=== PATIENT | female | born 1995 | race Caucasian/White ===

== ENCOUNTER → 2017-03-27 | Outpatient (CLI) | payer OTHER ==
[~2017-03-27] MED LIST: IUD'IUD
--- NOTE | 2017-03-27 18:06 | DIAGNOSTIC IMAGING REPORT ---
RIGHT KNEE 3 VIEWS HISTORY: M25.561 Right knee pain Right COMPARISON: None. FINDINGS: There is no fracture or dislocation. Soft tissues are unremarkable. No radiopaque foreign bodies. No knee effusion. IMPRESSION: Normal right knee. Electronically signed by: Jeronimo Bravo M.D. 03/27/2017 6:05 PM Dictated Date/Time: 03/27/2017 6:04 PM
== END | disposition home or self-care (01) ==
LOC: C.RAD 17:28
PROVIDERS: ATTEND Nurse Practitioner
DX: M25.561 Pain in right knee (principal)

== ENCOUNTER 2025-06-08 05:29 | Inpatient (IN) ==
--- NOTE | 2025-06-03 08:38 | Anesthesiology Consultation ---
Date of Service June 03, 2025 Assessment & Plan (1) Encounter for pre-operative examination: - Per railways assistant on 06/03/25: No known infectious disease contacts, current infectious disease symptoms in past 10 days or COVID positive test result in the past 30 days. Chart Review Chart Review: data entry representative initiated History Surgery Operation Date: 06/08/25 07:30 Proposed Procedures p Section in LD - Chey Duarte MD s Bilateral Tubal Ligation Labor & Deliv - Chey Duarte MD Height/Weight Height: 5 ft 3 in Weight: 72.575 kg Allergies Allergy/AdvReac Type Severity Reaction Status Date / Time No Known Allergies Allergy Verified 06/03/25 07:29 Medications Home Medications Medication Instructions Recorded Confirmed Last Taken 21-iron fu-folic acid 1 tab PO DAILY 11/10/24 06/03/25 Unknown [ Complete] breast pump #1 ea 02/25/25 05/27/25 Unknown albuterol sulfate 90 mcg/actuation 90 mcg inhalation QID PRN 06/03/25 06/03/25 Unknown aerosol inhaler shortness of breath or wheezing beclomethasone dipropionate 40 2 inh inhalation BID PRN Illness 06/03/25 06/03/25 Unknown mcg/actuation HFA breath activated aerosol (Qvar RediHaler) Past Medical History Medical History (Updated 06/03/25 @ 08:36 by Radha Larsen PA-C) Anxiety Asthma PRN Inhaler Biceps tendinitis on right no surgery - chiropractor care Chronic pelvic pain in female from endometriosis Complex ovarian cyst "resolved on their own" Depression H/O Dysmenorrhea hx Endometriosis determined by laparoscopy Foreign body ingestion hx - "tongue piercing ball came off" GERD (gastroesophageal reflux disease) History of anemia no blood transfusion/iron infusion Insomnia Lateral epicondylitis, right elbow no surgery - chiropractor care Medial epicondylitis, right elbow no surgery - chiropractor care Menometrorrhagia hx Migraine Numbness and tingling of right arm "Sometimes" no surgery - chiropractor care Ovarian cyst 2013, "resolved on own" Varicella hx Past Family History Family History Grandmother Diabetes Family/Other Alcohol abuse Bladder calculus Depression Endometriosis Hypertension Lung cancer Ovarian cyst Pure hypercholesterolemia Skin cancer Denies family history of Ovarian cancer Breast cancer Colorectal cancer Past Surgical History Surgical History H/O laparoscopy diagnostic History of section x1 History of esophagogastroduodenoscopy (EGD) (2022) History of open reduction and internal fixation (ORIF) procedure Right Ankle - Hardware present History of tonsillectomy History of wisdom tooth extraction Social History Smoking Status: Never smoker tobacco type: cigarettes Do You Dip or Chew Tobacco: No Hx Alcohol Use: No Alcohol type: beer and hard liquor alcohol intake frequency: holidays/special occasions only Hx Substance Use: No substance use type: does not use
[2025-06-08] MEDS: LACTATED RINGER'S 1,000 ML IV SCH ×2 (06:01→06:57)
[2025-06-08] MEDS: ACETAMINOPHEN 500 MG TAB PO SCH (06:05)
[2025-06-08 06:06] LABS: Hematocrit (blood only) 28.8 % (37.0-47.0); Hemoglobin 9.2 g/dl (12.0-16.0); Mean Corpuscular Hemoglobin 25.7 pg (25.0-34.0); Mean Corpuscular Volume 80.4 fL (80.0-100.0); Platelet Count 238 K/uL (130-400); RDW Standard Deviation 43.6 fL (36.4-46.3); Red Blood Count 3.58 M/uL (4.20-5.40); White Blood Count 7.54 K/ul (4.8-10.8)
[2025-06-08] MEDS ORDERED: SODIUM CHLORIDE 0.9% 100 ML IV PRN (07:08)
[2025-06-08] MEDS ORDERED: MoRPHine SULFATE PF 1 MG/ML 10 ML AMP/VIAL ONE (07:26)
[2025-06-08] MEDS ORDERED: PHENYLEPHRINE HCL 25 MG/250 ML NSS IV ONE (07:26)
--- NOTE | 2025-06-08 07:29 | History & Physical Bridge Note ---
Date of Service June 08, 2025 History & Physical Bridge Note I have examined the patient, reviewed the History & Physical and in the interval since the performance of the History & Physical I have noted the following changes of clinical significance: no changes noted
[2025-06-08] MEDS: CITRIC ACID/SODIUM CITRATE 15 ML UDC PO SCH (07:38)
[2025-06-08] MEDS ORDERED: NALBUPHINE HCL INJ 10 MG/ML AMP IV PRN (07:41)
[2025-06-08] MEDS ORDERED: MEPERIDINE HCL 25 MG/ML CARP/VIAL IV PRN (07:41)
[2025-06-08] MEDS ORDERED: KETOROLAC 30 MG/ML VIAL IV PRN (07:41)
[2025-06-08] MEDS ORDERED: LACTATED RINGER'S 500 ML IV PRN (07:41)
[2025-06-08] MEDS ORDERED: diphenhydrAMINE 50 MG/ML VIAL IV PRN (07:41)
[2025-06-08] MEDS ORDERED: MoRPHine SULFATE 2 MG/ML CARP IV PRN (07:41)
[2025-06-08] MEDS ORDERED: NALOXONE HCL 0.08 MG in SYRINGE 1.8 ML IV PRN (07:41)
[2025-06-08] MEDS ORDERED: NALOXONE HCL 1 MG in SODIUM CHLORIDE 0.9% 1,000 ML IV PRN (07:41)
[2025-06-08] MEDS ORDERED: ACETAMINOPHEN 1,000 MG/100 ML VIAL IV PRN (07:41)
[2025-06-08] MEDS ORDERED: NALOXONE HCL 0.4 MG/1 ML VIAL/CARP IV PRN (07:41)
[2025-06-08] MEDS ORDERED: HYDROmorphone INJ 0.5 MG/0.5 ML SYR IV PRN (07:41)
[2025-06-08] MEDS ORDERED: NO NARCOTICS OR SEDATIVES SCH (07:45)
[2025-06-08] MEDS ORDERED: DC INTRASPINAL MORPHINE SCH (07:45)
[2025-06-08] MEDS ORDERED: OXYTOCIN 10 UNITS/ML VIAL ONE ×3 (08:09→08:29)
[2025-06-08] MEDS ORDERED: ONDANSETRON INJ 2 MG/ML 2 ML VIAL ONE (08:25)
--- NOTE | 2025-06-08 08:40 | Operative Report ---
PG Post Operative Report Pre & Post Diagnosis Operation Date: 06/08/25 07:30 Pre-Op Diagnosis: SIUP @ 39w1d History of Section Desires Sterilization Post-Op Diagnosis: Same I identified the patient and participated in the time-out.: Yes Procedure Operation Date: 06/08/25 07:30 Actual Procedures Repeat Low Transverse Section, Bilateral Salpingectomy Surgeon Chey Duarte MD Career Based Intervention Coordinator Jaqui Zaragoza RN Estimated Blood Loss 331 Findings Consistent with Post-Op Diagnosis Specimens Cord blood, placenta Anesthesia Type Spinal Complications none Disposition Accompanied Patient To Recovery: Yes Disposition: L&D Description of Procedure The patient was placed operating table in the supine position with a leftward tilt. She was prepped and draped in standard sterile fashion. The anesthetic was tested and found to be adequate. A time-out was held, identifying correct patient, procedure, positioning and preoperative antibiotics. There were no concerns. A Pfannenstiel skin incision was made with a knife and taken down to the underlying layer of fascia. The fascia was incised in the midline with the knife and taken out laterally with scissors. The superior edge of the fascial incision was grasped, elevated and dissected off the underlying rectus both superiorly and inferiorly. The muscles were bluntly in the midline. The peritoneum was entered bluntly. The incision was then stretched. The bladder retractor was placed. The vesicouterine peritoneum was identified, entered with scissors and taken out laterally with scissors. The bladder flap was created digitally. A hysterotomy incision was created transversely in the lower uterine segment, final entry being accomplished in a blunt manner with the sweet goods machine operator's fingers. Clear amniotic fluid was encountered. The sweet goods machine operator's hand was used to elevate the head to the hysterotomy. The head was delivered using mild fundal pressure, and the shoulders and body followed without difficulty. The cord was clamped and cut and the was then handed off to the awaiting metal window screen assembler. Cord blood was obtained. The placenta was Manually extracted. The uterus was exteriorized and cleared of all clot and debris with moistened laparotomy sponges. The hysterotomy incision was repaired in two layers, the first in a running locked layer, the second in an imbricating layer. The ovaries and tubes were seen to be normal bilaterally. The tubes were each elevated and excised using LigaSure after verbal confirmation of patient's desire to proceed with sterilization. The uterus was gently replaced in the abdomen, and the gutters were cleared of clot and debris. A final inspection of the hysterotomy revealed good hemostasis. The rectus muscles were allowed to reapproximate naturally. The fascia was then reapproximated with 1 Vicryl in a running nonlocked manner. The fascia was examined and found to be free of defect following closure. The subcutaneous tissue was copiously irrigated and reapproximated with 0-chromic, then the skin edges were closed with 4-0 monocryl in a subcuticular fashion. A dermabond dressing was applied. The snell was found to be draining clear yellow urine at completion of the procedure. I attest to the content of the Intraoperative Record and any orders documented therein. Any exceptions are noted below. I attest to the content of the Intraoperative Record and any orders documented therein. Any exceptions are noted below. OB Procedure Charges [id number] [id number] Add on Tubal for C/S
[2025-06-08] MEDS ORDERED: SENNA 8.6 MG TAB PO PRN (09:51)
[2025-06-08] MEDS ORDERED: MAGNESIUM HYDROXIDE SUSP 30 ML UDC PO PRN (09:51)
[2025-06-08] MEDS ORDERED: HYDROCORTISONE ACETATE 25 MG SUPP PR PRN (09:51)
[2025-06-08] MEDS ORDERED: CALCIUM CARBONATE 500 MG CHEWABLE TAB PO PRN (09:51)
[2025-06-08] MEDS ORDERED: BENZOCAINE 20% SPRY 85 APPLN/85 GM CAN EXT PRN (09:51)
[2025-06-08] MEDS ORDERED: LACTATED RINGER'S 1,000 ML IV SCH (09:51)
[2025-06-08] MEDS: KETOROLAC 30 MG/ML VIAL IV SCH (10:20)
[2025-06-08] MEDS: DIPHTHER/TETAN/PERTUS Vaccine (Tdap, Adol/Adult) 0.5mL IM ONE (10:28)
[2025-06-08] MEDS: ONDANSETRON INJ 2 MG/ML 2 ML VIAL IV PRN (11:36)
[2025-06-08] MEDS: MoRPHine SULFATE PF 1 MG/ML 10 ML AMP/VIAL INT SPINAL ONE (11:44)
[2025-06-08] MEDS: SODIUM CHLORIDE 0.9% 1,000 ML IV SCH (11:44)
--- NOTE | 2025-06-08 13:06 | Anesthesiology Progress Note ---
Date of Service June 08, 2025 Anesthesia Post Procedure Vital Signs Vital Signs: Temp Pulse Pulse Resp BP BP Pulse Ox 06/08/25 11:45 16 99 06/08/25 11:45 06/08/25 11:45 36.6 C 69 16 104/68 99 06/08/25 11:17 49 L 97 06/08/25 11:12 58 L 98 06/08/25 11:07 57 L 99 06/08/25 11:01 54 L 97 06/08/25 10:56 65 99 06/08/25 10:51 68 97 06/08/25 10:49 61 103/64 06/08/25 10:48 83 92 06/08/25 10:43 68 95 06/08/25 10:41 68 94 06/08/25 10:38 100 06/08/25 10:38 73 06/08/25 10:38 84 116/57 L 06/08/25 10:33 63 100 06/08/25 10:32 74 94 06/08/25 10:28 59 L 98 06/08/25 10:27 53 L 91/59 L 06/08/25 10:23 76 97 06/08/25 10:22 62 93 06/08/25 10:18 64 88/58 L 98 06/08/25 10:15 36.4 C L 18 06/08/25 10:15 74 94 06/08/25 10:13 64 99 06/08/25 10:08 71 99 06/08/25 10:07 65 103/49 L 06/08/25 10:03 57 L 99 06/08/25 09:58 61 98 06/08/25 09:57 60 96/52 L 06/08/25 09:53 65 100 06/08/25 09:48 61 100 06/08/25 09:47 61 96/65 L 06/08/25 09:45 18 06/08/25 09:43 79 99 06/08/25 09:38 77 100 06/08/25 09:37 72 95/67 L 06/08/25 09:35 15 06/08/25 09:33 71 93 06/08/25 09:31 74 93 06/08/25 09:28 68 97 06/08/25 09:27 66 101/66 06/08/25 09:25 18 06/08/25 09:23 80 99 06/08/25 09:18 70 99 06/08/25 09:17 69 96/51 L 06/08/25 09:15 16 06/08/25 09:13 68 100 06/08/25 09:08 84 98 06/08/25 09:07 67 95/51 L 06/08/25 09:05 20 06/08/25 09:03 68 100 06/08/25 09:00 06/08/25 08:58 80 99 06/08/25 08:57 72 93/54 L 06/08/25 08:55 20 06/08/25 08:53 100 06/08/25 08:53 69 06/08/25 08:53 73 94 06/08/25 08:48 66 98 06/08/25 08:45 06/08/25 08:45 18 06/08/25 08:45 36.4 C L 18 06/08/25 08:44 79 88/49 L 06/08/25 08:43 69 100 06/08/25 07:00 36.6 C 78 16 93/56 L 06/08/25 06:30 18 06/08/25 06:30 18 06/08/25 06:00 18 06/08/25 06:00 18 06/08/25 05:40 36.7 C 18 06/08/25 05:38 90 112/76 Pulse Ox O2 Del Method O2 Del Method 06/08/25 11:45 06/08/25 11:45 Room Air 06/08/25 11:45 Room Air 06/08/25 11:17 06/08/25 11:12 06/08/25 11:07 06/08/25 11:01 06/08/25 10:56 06/08/25 10:51 06/08/25 10:49 06/08/25 10:48 06/08/25 10:43 06/08/25 10:41 06/08/25 10:38 06/08/25 10:38 06/08/25 10:38 06/08/25 10:33 06/08/25 10:32 06/08/25 10:28 06/08/25 10:27 06/08/25 10:23 06/08/25 10:22 06/08/25 10:18 06/08/25 10:15 Room Air 06/08/25 10:15 06/08/25 10:13 06/08/25 10:08 06/08/25 10:07 06/08/25 10:03 06/08/25 09:58 06/08/25 09:57 06/08/25 09:53 06/08/25 09:48 06/08/25 09:47 06/08/25 09:45 06/08/25 09:43 06/08/25 09:38 06/08/25 09:37 06/08/25 09:35 06/08/25 09:33 06/08/25 09:31 06/08/25 09:28 06/08/25 09:27 06/08/25 09:25 06/08/25 09:23 06/08/25 09:18 06/08/25 09:17 06/08/25 09:15 06/08/25 09:13 06/08/25 09:08 06/08/25 09:07 06/08/25 09:05 06/08/25 09:03 06/08/25 09:00 Room Air 06/08/25 08:58 06/08/25 08:57 06/08/25 08:55 06/08/25 08:53 06/08/25 08:53 06/08/25 08:53 06/08/25 08:48 06/08/25 08:45 99 Room Air 06/08/25 08:45 06/08/25 08:45 06/08/25 08:44 06/08/25 08:43 06/08/25 07:00 06/08/25 06:30 06/08/25 06:30 06/08/25 06:00 06/08/25 06:00 06/08/25 05:40 06/08/25 05:38 Transfer of Care Handoff Completed per policy Notes Mental Status: alert / awake / arousable and participated in evaluation Nausea / Vomiting: adequately controlled Pain: adequately controlled Airway Patency, RR, SpO2: stable & adequate BP & HR: stable & adequate Hydration State: stable & adequate Neuraxial Anesthesia: was administered and sensory block is resolving Anesthetic Complications: no major complications apparent and Pt Satisfied with anesthetic care
[2025-06-08] MEDS ORDERED: METHYLERGONOVINE MALEATE 0.2 MG/ML AMP IM ONE (13:22)
[2025-06-08] MEDS: METHYLERGONOVINE MALEATE 0.2 MG TAB PO ONE (13:23)
[2025-06-08] MEDS: SIMETHICONE 80 MG CHEW PO SCH (14:07)
[2025-06-08] MEDS: METHYLERGONOVINE MALEATE 0.2 MG TAB PO STA (14:12)
[2025-06-08] MEDS: PROMETHAZINE 6.25 MG/50.25 ML BAG IV PRN (14:28)
[2025-06-08] MEDS: ACETAMINOPHEN 325 MG TAB PO SCH (15:29)
[2025-06-08] MEDS: OXYTOCIN 20 UNITS/LR 1,002 ML IV SCH (17:07)
[2025-06-08] MEDS: DOCUSATE SODIUM 100 MG CAP PO SCH (21:46)
[2025-06-09] MEDS ORDERED: PROMETHAZINE 12.5 MG/50.5 ML BAG IV PRN (01:41)
[2025-06-09] MEDS ORDERED: HYDROmorphone INJ 0.5 MG/0.5 ML SYR IV PRN (01:41)
[2025-06-09] MEDS ORDERED: diphenhydrAMINE Capsule 25 MG CAP PO PRN (01:41)
[2025-06-09] MEDS ORDERED: ONDANSETRON INJ 2 MG/ML 2 ML VIAL IV PRN (01:41)
[2025-06-09] MEDS ORDERED: diphenhydrAMINE 50 MG/ML VIAL IV PRN (01:41)
--- NOTE | 2025-06-09 06:02 | Obstetrical Progress Note ---
Date of Service June 09, 2025 Assessment & Plan (1) care and examination: Plan: Patient had yesterday. Will continue to monitor. Admission and Anticipated Discharge Date Admission Date: June 08, 2025 Supervising Physician Co-Signing Physician Notes Day 1 status post repeat section. Patient doing well today. Continue routine care Subjective 29 yo post- day 1 s/p [] Ambulation: ambulating normally Voiding: no voiding problems Passing Gas:: No Diet Tolerance:: regular diet Feeding Type:: Breast feeding with supplementation at nursery Current Pain Level:Improving Resting comfortably this AM in NAD. Denies HAYES, CP/palpitations, SOB/cough/wheeze, N/V/D, Breast pain/discharge, UTI Sx, fevers/chills, Review of Systems Review of Systems: as per subjective HPI Physical Exam Constitutional: no acute distress Respiratory: normal respiratory effort; no respiratory distress Auscultation: lungs clear to auscultation bilaterally Cardiovascular: Rate/Rhythm: regular rate and regular rhythm Heart Sounds: no murmur Extremities: no calf tenderness and no pedal edema Gastrointestinal (Abdomen): Uterus is 1cm above umbilicus. wound is healing nicely, no signs of infection. Psychiatric: Orientation: alert and oriented x 3 Results & Data Vital Signs (Past 12 Hours) Vital Signs Temp Pulse Resp BP Pulse Ox O2 Del Method 06/09/25 04:00 36.7 C 58 L 17 100/63 97 Room Air 06/09/25 00:30 17 99 06/09/25 00:30 36.8 C 67 17 97/57 L 99 Room Air 06/09/25 00:15 16 99 06/08/25 23:30 16 98 06/08/25 20:30 18 98 06/08/25 20:30 36.9 C 74 18 98/64 L 98 Room Air 06/08/25 18:30 16 98
[2025-06-09 07:28] LABS: Hematocrit (blood only) 22.5 % (37.0-47.0); Hemoglobin 7.3 g/dl (12.0-16.0); Immature Granulocytes # (auto) 0.08 K/uL (0.01-0.20); Immature Granulocytes % (auto) 0.9 %; Mean Corpuscular Hemoglobin 26.1 pg (25.0-34.0); Mean Corpuscular Volume 80.4 fL (80.0-100.0); Platelet Count 173 K/uL (130-400); RDW Standard Deviation 44.1 fL (36.4-46.3); Red Blood Count 2.80 M/uL (4.20-5.40); White Blood Count 8.44 K/ul (4.8-10.8)
[2025-06-09 07:50] LABS: RBC Morphology Unremarkable
[2025-06-09] MEDS ORDERED: KETOROLAC 30 MG/ML VIAL IV PRN (08:41)
[2025-06-09] MEDS: IBUPROFEN 600 MG TAB PO SCH (08:53)
[2025-06-09] MEDS: PRENATAL VITAMIN 1 TAB PO SCH (08:54)
[2025-06-09] MEDS: FERROUS SULFATE 325 MG TAB PO SCH (08:55)
--- NOTE | 2025-06-09 19:42 | Obstetrical Progress Note ---
Date of Service June 10, 2025 Assessment & Plan (1) care and examination: Plan: Patient had yesterday. Will continue to monitor. Admission and Anticipated Discharge Date Admission Date: June 08, 2025 Subjective 29 yo post- day 1 s/p [] Ambulation: ambulating normally Voiding: no voiding problems Passing Gas:: No Diet Tolerance:: regular diet Feeding Type:: Breast feeding with supplementation at nursery Current Pain Level:Improving Resting comfortably this AM in NAD. Denies HAYES, CP/palpitations, SOB/cough/wheeze, N/V/D, Breast pain/discharge, UTI Sx, fevers/chills, Review of Systems Review of Systems: as per subjective HPI Physical Exam Constitutional: no acute distress Respiratory: normal respiratory effort; no respiratory distress Auscultation: lungs clear to auscultation bilaterally Cardiovascular: Rate/Rhythm: regular rate and regular rhythm Heart Sounds: no murmur Extremities: no calf tenderness and no pedal edema Psychiatric: Orientation: alert and oriented x 3 Results & Data Vital Signs (Past 12 Hours) Vital Signs O2 Del Method 06/09/25 08:35 Room Air
[2025-06-09 20:50] VITALS: RESP 16
[2025-06-10 01:36] VITALS: O2SAT 98
--- NOTE | 2025-06-10 06:04 | Obstetrical Progress Note ---
Date of Service June 10, 2025 Assessment & Plan (1) care and examination: Plan: Patient had 2 days ago. Patient is currently stable and desires to go home today. Will discharge. Admission and Anticipated Discharge Date Admission Date: June 08, 2025 Supervising Physician Co-Signing Physician Notes Resident Physician Supervision Note: I was present with Dr. Hoang during the history and exam. I discussed the case with the resident and agree with the findings and plan as documented in the note. Any exceptions or clarifications are listed here: POD#2 doing well. Desires DC home. Has not taken oxycodone here, declines Rx. Documented By: Rupal Dickinson, Subjective 29 yo post- day 2 s/p [] Ambulation: ambulating normally Voiding: no voiding problems Passing Gas:: No Diet Tolerance:: regular diet Feeding Type:: Breast feeding. Trouble with latching due to rib pain, had to bottle supplement two times. Current Pain Level:Improving. Patient does say she has pain with extraneous movement. Resting comfortably this AM in NAD. Denies HAYES, CP/palpitations, SOB/cough/wheeze, N/V/D, Breast pain/discharge, UTI Sx, fevers/chills, Review of Systems Review of Systems: as per subjective HPI Physical Exam Constitutional: no acute distress Respiratory: normal respiratory effort; no respiratory distress Auscultation: lungs clear to auscultation bilaterally Cardiovascular: Rate/Rhythm: regular rate and regular rhythm Heart Sounds: no murmur Extremities: no calf tenderness and no pedal edema Gastrointestinal (Abdomen): Percussion/Palpation: abdomen soft Uterus was 1cm above the umbilicus. surgical incision is clean, dry, and intact Psychiatric: Orientation: alert and oriented x 3 Results & Data Vital Signs (Past 12 Hours) Vital Signs Temp Pulse Resp BP Pulse Ox O2 Del Method 06/10/25 01:30 36.8 C 73 16 104/64 98 Room Air 06/09/25 20:30 Room Air 06/09/25 20:30 37.3 C 84 16 100/65 97 Room Air
[2025-06-10 06:25] LABS: Hematocrit (blood only) 22.7 % (37.0-47.0); Hemoglobin 7.3 g/dl (12.0-16.0)
[2025-06-10 07:38] VITALS: BP 101/68; PULSE 75; TEMP 98.6
[2025-06-10] MEDS ORDERED: IBUPROFEN 600 MG TAB PO PRN (08:41)
[2025-06-10] MEDS ORDERED: ACETAMINOPHEN 325 MG TAB PO PRN (14:41)
--- NOTE | 2025-06-11 10:58 | Discharge Summary ---
Date of Service June 11, 2025 Discharge Data Consultations 06/08/25 05:29 Consult Anesthesiology Stat Procedures Performed Operation Date: 06/08/25 07:30 Actual Procedures p Section with delivery of live female child at 0806 - Chey Duarte MD s Bilateral Tubal Ligation - Chey Duarte MD Coding Level of Care Code 72282 IN/OBS DISCH 30 MIN/LESS
== END 2025-06-10 12:05 | disposition home or self-care (01) | DRG 785 ==
LOC: 4S1 05:29 → EDSTATUS 07:30 → 4E2 11:44
PROC: M.PPTLD (2025-06-08 07:30)